=== PATIENT | male | born 1945 | race Caucasian/White ===

== ENCOUNTER 2018-07-17 09:28 | Emergency (ER) | payer OTHER, BC ==
[2018-07-17] MEDS ORDERED: SODIUM CHLORIDE 500 ML IV STA (09:31)
[2018-07-17 09:54] VITALS: TEMP 97.9; BMI 25.1
--- NOTE | 2018-07-17 10:06 | PDOC ---
History of Present Illness - General Chief Complaint: Syncope/Near Syncope Stated Complaint: DIZZY DIAPHOERTIC PALE NEAR SYNCOPY Time Seen by Provider: 07/17/18 09:28 History Source: Patient, Spouse Exam Limitations: No Limitations - History of Present Illness Initial Comments: 07/17/18 10:01 72 year old male with PMH HTN, HLD, CABG, renal artery stents, CHF presented to ED for syncopal episode. Pt was at his 's doctor appointment, when walking out to leave he began to feel lightheaded, and had a syncopal episode, taking himself to the ground. Rapid response was called, I arrived to see the patient sitting upright in a corner, clammy and pale. Pt was transferred to a wheelchair and brought to the ED. Within minutes pt was awake and alert, back to baseline, reported no symptoms. Pt denied chest pain, shortness of breath, palpitations prior to syncopal episode or after. Pt admitted to 3 days of white productive cough. Pt admitted to not eating or drinking a lot over the last few days. Allergies: [facility] Collision Repairer: Dr. Craig Coronel - [phone] Past History - Past Medical History Allergies/Adverse Reactions: Allergies Allergy/AdvReac Type Severity Reaction Status Date / Time No Known Allergies Allergy Unverified 07/17/18 09:31 Home Medications: Ambulatory Orders Amlodipine Besylate 5 mg PO DAILY 07/17/18 Clonidine Patch [Catapres Tts Patch -] 0.3 mg TD WEEKLY 07/17/18 Colesevelam HCl 625 mg PO DAILY 07/17/18 Fenofibrate 160 mg PO DAILY 07/17/18 Furosemide [Lasix] 20 mg PO DAILY 07/17/18 Isosorbide Mononitrate [Isosorbide Mononitrate ER] 60 mg PO BID 07/17/18 Methylprednisolone [Medrol Dose Raffy] 4 mg PO ASDIR #21 tablet 07/17/18 Metoprolol Tartrate [Lopressor] 50 mg PO BID 07/17/18 Pravastatin Sodium [Pravachol (Nf)] 40 mg PO HS 07/17/18 Zolpidem Tartrate [Ambien] 5 mg PO PRN 07/17/18 hydrALAZINE HCL [Apresoline -] 25 mg PO TID 07/17/18 Cardiac Disorders: Yes COPD: No Other medical history: KIDNEY STONES - Surgical History Cardiac Surgery: Yes (4 VESSEL BYPASS) - Suicide/Smoking/Psychosocial Hx Smoking History: Never smoked Information on smoking cessation initiated: No Hx Alcohol Use: No Drug/Substance Use Hx: No Review of Systems - Review of Systems Able to Perform ROS?: Yes Comments:: 07/17/18 10:04 General: admitted to generalized weakness. denied fever, chills. HEENT: denied sore throat, rhinorrhea, ear pain. Heart: admitted to syncope. denied chest pain, palpitations, diaphoresis. Respiratory: admitted to cough, sputum production. denied shortness of breath, hemoptysis. Abdomen: denied abdominal pain, nausea, vomiting, diarrhea, constipation, blood in stool. : denied dysuria, increased urinary frequency, hematuria, urinary incontinence , flank pain. Back: denied back pain. Musculoskeletal: denied joint pain, muscle pain, joint swelling. Neurological: denied headache, dizziness, numbness, tingling, weakness. Skin: denied rash, laceration, abrasion. *Physical Exam - Vital Signs Last Vital Signs Temp Pulse Resp BP Pulse Ox 97.9 F 50 L 18 147/59 L 96 07/17/18 09:30 07/17/18 09:30 07/17/18 09:30 07/17/18 09:30 07/17/18 09:30 - Physical Exam Comments: 07/17/18 10:04 Constitutional: Well-nourished, Well-developed, appearing stated age. HEENT: head is normocephalic, atraumatic. no scalp hematomas. no freeman sign. no facial tenderness bilaterally. no raccoon eyes. EOMI. PERRLA. Neck: supple. Full ROM. Heart: regular rhythm. no murmurs, rubs or gallops. Lungs: dullness and crackles to right base. left lung clear to auscultation. Abdomen: soft, nontender. normal bowel sounds. no rebound, guarding, masses. Extremities: peripheral pulses intact. no lower extremity edema. Neurological: CN 2-12 grossly intact. moves all four extremities. Psych: awake, alert, oriented x3. follows commands. answers questions appropriately. ED Treatment Course - LABORATORY CBC & Chemistry Diagram: 07/17/18 10:08 07/17/18 10:08 Medical Decision Making - Medical Decision Making 07/17/18 10:05 72 year old male with above PMH presented to ED for syncopal episode, complained of productive cough x3 days. Initial Vital Signs Temp Pulse Resp BP Pulse Ox 97.9 F 50 L 18 147/59 L 96 07/17/18 09:30 07/17/18 09:30 07/17/18 09:30 07/17/18 09:30 07/17/18 09:30 Afebrile. Bradycardia. No tachypnea. Mild systolic hypertension and diastolic hypotension. No hypoxia on room air. EKG performed at 0929: rate 45, regular rhythm, normal axis, 1st degree AV block , incomplete RBBB, flipped T in III otherwise no ST changes. Labs ordered: CBC, CMP, mag, phos, troponin Imaging ordered: CXR Medications ordered: normal saline bolus 500 cc 07/17/18 11:13 CBC WBC 5.2 K/mm3 (4.0-10.8) 07/17/18 10:08 RBC 3.95 M/mm3 (4.00-5.60) L 07/17/18 10:08 Hgb 13.2 GM/dl (11.7-16.9) 07/17/18 10:08 Hct 38.8 % (35.4-49) 07/17/18 10:08 MCV 98.2 fl (80-96) H 07/17/18 10:08 MCH 33.3 pg (25.7-33.7) 07/17/18 10:08 MCHC 33.9 g/dl (32.0-35.9) 07/17/18 10:08 RDW 13.3 % (11.9-15.9) 07/17/18 10:08 Plt Count 268 K/MM3 (134-434) 07/17/18 10:08 MPV 7.3 fl (7.5-11.1) L 07/17/18 10:08 Absolute Neuts (auto) 3.0 K/mm3 07/17/18 10:08 Neutrophils % 59.8 % (42.8-82.8) 07/17/18 10:08 Lymphocytes % 25.1 % (8-40) 07/17/18 10:08 Monocytes % 10.9 % (3.8-10.2) H 07/17/18 10:08 Eosinophils % 3.0 % (0-4.5) 07/17/18 10:08 Basophils % 1.2 % (0-2.0) 07/17/18 10:08 No anemia. Mild high MCV. No thrombocytopenia. CMP Sodium 136 mmol/L (136-145) 07/17/18 10:08 Potassium 3.6 mmol/L (3.5-5.1) 07/17/18 10:08 Chloride 105 mmol/L (98-107) 07/17/18 10:08 Carbon Dioxide 19 mmol/L (21-32) L 07/17/18 10:08 Anion Gap 12 MMOL/L (8-16) 07/17/18 10:08 BUN 35 mg/dl (7-18) H 07/17/18 10:08 Creatinine 2.2 mg/dl (0.55-1.3) H 07/17/18 10:08 Creat Clearance w eGFR 29.57 (>60) 07/17/18 10:08 Random Glucose 127 mg/dl (74-106) H 07/17/18 10:08 Calcium 8.8 mg/dl (8.5-10) 07/17/18 10:08 Phosphorus 2.6 mg/dl (2.5-4.9) 07/17/18 10:08 Magnesium 1.8 mg/dL (1.8-2.4) 07/17/18 10:08 Total Bilirubin 0.4 mg/dl (0.2-1) 07/17/18 10:08 AST 22 U/L (15-37) 07/17/18 10:08 ALT 13 U/L (13-61) 07/17/18 10:08 Alkaline Phosphatase 40 U/L (45-117) L 07/17/18 10:08 Troponin I < 0.03 ng/ml (0.00-0.05) 07/17/18 10:08 Total Protein 6.4 g/dl (6.4-8.2) 07/17/18 10:08 Albumin 3.9 g/dl (3.4-5.0) 07/17/18 10:08 No electrolyte abnormalities. JEANMARIE. - No prior to compare No transaminitis Troponin within normal limits. -Will repeat Pt reassessed, reported no symptoms, denied chest pain, shortness of breath, lightheadedness, palpitations. CXR report: no acute chest pathology. Vital Signs Temperature 97.9 F 07/17/18 09:30 Pulse Rate 49 L 07/17/18 11:05 Respiratory Rate 16 07/17/18 11:05 Blood Pressure 119/57 L 07/17/18 11:05 O2 Sat by Pulse Oximetry (%) 98 07/17/18 11:05 Bradycardia persisting. No tachypnea. Hypertension improved. No hypoxia on room air. CT head report: no evidence of acute intracranial hemorrhage, edema, midline shift, mass effect, or skull fracture. no CT evidence of acute territorial ischemic changes. supratentorial chronic white matter microangiopathic ischemic changes, gliosis. 07/17/18 11:42 Dr. Craig Snyder's office paged. 07/17/18 11:46 I spoke with the shade cloth finisher covering for Dr. 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 Current lab results at pt's baseline. 07/17/18 13:02 Pt reported he will miss his Hydralazine 25 mg noon dose. BP currently: 139/75. Medications ordered: Hydralazine 25 mg PO 07/17/18 13:23 Pt ate turkey sandwich and stated since then has not felt lightheaded. 07/17/18 13:48 Second troponin normal. Pt reported no recurrence of lightheadedness, no chest pain, no shortness of breath. Pt ambulated unassisted to the bathroom without any difficulty. Pt discharged and informed to follow up with cardiology. Discharge medications: medrol dose pack. Vital Signs Pulse Rate 48 L 07/17/18 13:29 Respiratory Rate 16 07/17/18 13:29 Blood Pressure 139/75 07/17/18 13:29 O2 Sat by Pulse Oximetry (%) 98 07/17/18 11:05 *DC/Admit/Observation/Transfer Diagnosis at time of Disposition: Syncope, Viral respiratory illness - Discharge Dispostion Disposition: HOME Condition at time of disposition: Improved Decision to Admit order: No - Prescriptions Prescriptions: Methylprednisolone [Medrol Dose Raffy] 4 mg PO ASDIR #21 tablet - Referrals Referrals: Craig Snyder [Primary Care Provider] - Reji Ferreira MD [Staff Physician] - - Patient Instructions Additional Instructions: You were seen today for a syncopal episode (passing out) Your lab work was normal. Your creatinine was elevated (indicating decreased kidney function), but Dr. Synder's office stated that this level has been seen in the past for you. Your chest X-ray was normal, there was no pneumonia. Your CT head was normal. Your EKG was similar to prior EKGs performed at Dr. Snyder's office. Stay hydrated by drinking lots of water. Make sure to eat three times a day. I have sent a prescription to your pharmacy for a medrol dose pack (steroid) to treat your respiratory infection. Follow up with your shade cloth finisher within 3 days. Bring all paperwork given to you today to your appointment. Dr. Snyder's office is aware you were here. Follow up with your primary care doctor within 5 days. Bring all paperwork given to you today to your appointment. -I have given you a referral for Dr. Ferreira. Return to the Emergency Department for lightheadedness like you may pass out, chest pain, shortness of breath, palpitations, passing out, dizziness, blood in urine or any other new, worsening or concerning symptoms. - Post Discharge Activity
--- NOTE | 2018-07-17 10:11 | PDOC ---
Attending Attestation - Resident Resident Name: Shantal Vilchis - ED Attending Attestation I have performed the following: I have examined & evaluated the patient, The case was reviewed & discussed with the resident, I agree w/resident's findings & plan - HPI HPI: 07/17/18 10:06 72-year-old male with history of hypertension with bilateral renal artery stents placed over the last 6 months, aggressive blood pressure regimen with good control and without any recent changes presents to the ED after rapid response was called in the [facility], where his had an appointment. Patient was well until about 3 days ago, when he developed a " chest cold" described as cough with whitish sputum, otherwise no chest pain or dyspnea or fevers or chills. Grandson had URI, so they attributed the symptoms to that. Admittedly, has low by mouth intake on a daily basis, even further decreased over the last few days. Yesterday, shortly after awakening and taking his medications, patient had syncopal episode where he felt lightheaded and then missed a chair and fell to the ground, no head injury, reports loss of consciousness for less than 1 minute. Today, after standing up from the office visit, he became lightheaded again and sat down on the ground, no injury. Denies any chest pain/dyspnea/edema, denies any history of syncope, states last echo was within the last year. - Physicial Exam PE: 07/17/18 10:09 Normal blood pressure, baseline bradycardia at 48, O2 sat ranges from 92-95% on room air Alert and well-appearing seated in stretcher, speaking full sentences without respiratory distress Trauma exam is unremarkable Oropharynx is clear, occasional bronchial cough Decreased breath sounds at the right base with inspiratory and expiratory wheezing, otherwise clear with good air entry and no accessory muscle use Abdomen benign No edema or calf tenderness Neurological exam is normal - Medical Decision Making 07/17/18 10:10 72-year-old male with history of hypertension, no smoking history or underlying lung disease, presents with 2 episodes of lightheadedness/near syncope over the last 2 days in the setting of 3 days of URI/cough. Possible pneumonia given the lung findings and borderline O2 sat, appears dehydrated. Baseline bradycardia but with normal blood pressure, lower suspicion for ACS or arrhythmia. Check labs EKG, chest x-ray Given the fall yesterday, would check CT head IV fluids Reassess 07/17/18 10:45 no leukocytosis or anemia, cxr clear. comp/trop pending. feels well, receiving iv fluids. o2 99% on room air now. 07/17/18 12:21 baseline renal insufficiency 2.2, confirmed with ultimate hoops trainer. ct head without acute disease. sitting up eating tray of food. plan is to check 2nd trop, trial of ambulating, if feels well can discharge to outpt f/u. Balance Bridge Inspector Dr. Salas agrees and can see in office. If persistently light-headed despite food and iv fluids, will need tele obs. 07/17/18 13:52 sxs markedly improved after eating and iv fluids, now ambulating without light- headedness. vss, trop neg x2, feels well. will d/c on medrol dose pack given cough/wheeze, will f/u with his cardiolgist who is aware and agrees, understands return criteria. at bedside. Heart Score/ECG Review #1 ECG reviewed & interpreted by me at: 09:29 General ECG Interpretation: Sinus Rhythm, Normal Rate (45), Normal Intervals ( 1st degree AV block 294, qtc 437), No acute ischemic changes
[2018-07-17 10:22] LABS: BASO % 1.2 % (0-2.0); HEMATOCRIT 38.8 % (35.4-49); HEMOGLOBIN 13.2 GM/dl (11.7-16.9); LYMPH % 25.1 % (8-40); MCH 33.3 pg (25.7-33.7); MCHC 33.9 g/dl (32.0-35.9); MEAN CELL VOLUME 98.2 fl (80-96); MEAN PLT VOLUME 7.3 fl (7.5-11.1); MONO % 10.9 % (3.8-10.2); NEUT % 59.8 % (42.8-82.8); PLATELET COUNT 268 K/MM3 (134-434); RBC 3.95 M/mm3 (4.00-5.60); RDW 13.3 % (11.9-15.9); WHITE BLOOD COUNT 5.2 K/mm3 (4.0-10.8)
[2018-07-17 10:47] LABS: ALBUMIN 3.9 g/dl (3.4-5.0); ALK PHOS 40 U/L (45-117); ANION GAP 12 MMOL/L (8-16); BILIRUBIN,TOTAL 0.4 mg/dl (0.2-1); BLOOD UREA NITROGEN 35 mg/dl (7-18); CALCIUM 8.8 mg/dl (8.5-10); CHLORIDE 105 mmol/L (98-107); CO2 19 mmol/L (21-32); CREATININE 2.2 mg/dl (0.55-1.3); GLUCOSE,RANDOM 127 mg/dl (74-106); MAGNESIUM 1.8 mg/dL (1.8-2.4); PHOSPHOROUS 2.6 mg/dl (2.5-4.9); POTASSIUM 3.6 mmol/L (3.5-5.1); SGOT/AST 22 U/L (15-37); SGPT/ALT 13 U/L (13-61); SODIUM 136 mmol/L (136-145); TOT PROT 6.4 g/dl (6.4-8.2)
--- NOTE | 2018-07-17 11:40 | EKG ---
Test Reason : Blood Pressure : / mmHG Vent. Rate : 045 BPM Atrial Rate : 045 BPM P-R Int : 294 ms QRS Dur : 110 ms QT Int : 506 ms P-R-T Axes : 000 039 002 degrees QTc Int : 437 ms SINUS BRADYCARDIA WITH 1ST DEGREE A-V BLOCK INCOMPLETE RIGHT BUNDLE BRANCH BLOCK NONSPECIFIC T WAVE ABNORMALITY ABNORMAL ECG NO PREVIOUS ECGS AVAILABLE Confirmed by Chadwick Hein MD ([id number]) on 07/17/2018 11:39:48 AM Referred By: RITA GERONIMO Confirmed By:Chadwick Hein MD
[2018-07-17] MEDS ORDERED: hydrALAZINE HCL 25 MG TABLET (FP) PO ONE (13:01)
[2018-07-17 13:30] VITALS: BP 139/75; PULSE 48
== END 2018-07-17 14:11 | disposition home or self-care (01) ==
LOC: FER 09:28
PROC: 3E0337Z Introduction of Electrolytic and Water Balance Substance into Peripheral Vein, Percutaneous Approach (ICD-10-PCS; principal; 2018-07-17)
DX: R55 Syncope and collapse (principal); J06.9 Acute upper respiratory infection, unspecified; B97.89 Other viral agents as the cause of diseases classified elsewhere; I11.0 Hypertensive heart disease with heart failure; I50.9 Heart failure, unspecified; E78.5 Hyperlipidemia, unspecified; Z95.1 Presence of aortocoronary bypass graft; Z95.820 Peripheral vascular angioplasty status with implants and grafts
CPT/HCPCS: 36415; 70450-TC; 71045-TC-FY; 80053; 83735; 84100; 84484; 85025; 85730; 86850; 86900; 86901; 93005; 96360; 99285-25

== ENCOUNTER 2022-09-07 06:26 | Day surgery (SDC) | payer OTHER, BC ==
[2022-09-05 14:40] VITALS: BMI 23.6
[2022-09-07] MEDS: CYCLOPENTOLATE 2% OPHTH SOLN 2 ML BOTTLE ONE ×3 (06:45→06:55)
[2022-09-07] MEDS: PHENYLEPHRINE 2.5% OPTHALMIC DROP 2ML BOTTLE ONE ×3 (06:45→06:55)
[2022-09-07] MEDS: CIPROFLOXACIN 0.3% EYE DROPS 5 ML BOTTLE ONE ×3 (06:45→06:55)
[2022-09-07] MEDS: TROPICAMIDE 1% OPHTH SOLN 15 ML BOTTLE ONE ×3 (06:45→06:55)
[2022-09-07] MEDS ORDERED: PHENYLEPHRINE/KETOROLAC 4 ML VIAL IO ONE (07:12)
[2022-09-07] MEDS ORDERED: NEO/POLYMYX B SULF/DEXAMETH OPHTHALMIC 5ML BOTTLE ONE (07:12)
[2022-09-07] MEDS ORDERED: BSS (NA/CA/MG/K) BALANCED SALT SOLUTION OPHTH SOLN 15 ML BOTTLE ONE (07:12)
[2022-09-07] MEDS ORDERED: LIDOCAINE 1% P/F 10 MG/ML VIAL ONE (07:12)
[2022-09-07] MEDS ORDERED: ACETYLCHOLINE 1:100 INTRA-OCUL 20 MG/2 ML KIT ONE (07:12)
[2022-09-07] MEDS ORDERED: EPINEPHrine/PF 1 MG/1 ML (1:1,000) AMPULE ONE (07:12)
[2022-09-07] MEDS ORDERED: CARBACHOL 0.01% INTRA-OCULAR 1.5 ML VIAL ONE (07:12)
[2022-09-07] MEDS ORDERED: TETRACAINE 0.5% OPHTH SOLN 2 ML BOTTLE ONE (07:12)
[2022-09-07] MEDS ORDERED: TRYPAN BLUE 0.5 ML DISP.SYRIN ONE (07:12)
[2022-09-07] MEDS ORDERED: MIDAZOLAM HCL 2 MG/2 ML SINGLE DOSE VIAL ONE (07:22)
[2022-09-07 08:28] VITALS: RESP 18; TEMP 96.2
[2022-09-07 08:50] VITALS: BP 122/60; PULSE 52
== END 2022-09-07 09:15 | disposition home or self-care (01) ==
LOC: FASU 06:26
PROVIDERS: ATTEND Ophthalmology
PROC: 08RJ3JZ Replacement of Right Lens with Synthetic Substitute, Percutaneous Approach (ICD-10-PCS; principal; 2022-09-07 08:01)
DX: H26.8 Other specified cataract (principal)
CPT/HCPCS: 66984; V2632; J1097

== ENCOUNTER 2022-09-21 09:02 | Day surgery (SDC) | payer OTHER, BC ==
[2022-09-16 16:28] VITALS: BMI 23.6
[2022-09-21] MEDS ORDERED: BSS (NA/CA/MG/K) BALANCED SALT SOLUTION OPHTH SOLN 15 ML BOTTLE ONE (09:26)
[2022-09-21] MEDS ORDERED: TETRACAINE 0.5% OPHTH SOLN 2 ML BOTTLE ONE (09:26)
[2022-09-21] MEDS ORDERED: LIDOCAINE 1% P/F 10 MG/ML VIAL ONE (09:26)
[2022-09-21] MEDS ORDERED: NEO/POLYMYX B SULF/DEXAMETH OPHTHALMIC 5ML BOTTLE ONE (09:26)
[2022-09-21] MEDS ORDERED: EPINEPHrine/PF 1 MG/1 ML (1:1,000) AMPULE ONE (09:26)
[2022-09-21] MEDS ORDERED: CARBACHOL 0.01% INTRA-OCULAR 1.5 ML VIAL ONE (09:26)
[2022-09-21] MEDS: CIPROFLOXACIN 0.3% EYE DROPS 5 ML BOTTLE ONE ×3 (09:35→09:45)
[2022-09-21] MEDS: CYCLOPENTOLATE 2% OPHTH SOLN 2 ML BOTTLE ONE ×3 (09:35→09:45)
[2022-09-21] MEDS: TROPICAMIDE 1% OPHTH SOLN 15 ML BOTTLE ONE ×3 (09:35→09:45)
[2022-09-21] MEDS: PHENYLEPHRINE 2.5% OPTHALMIC DROP 2ML BOTTLE ONE ×3 (09:35→09:45)
[2022-09-21] MEDS ORDERED: MIDAZOLAM HCL 2 MG/2 ML SINGLE DOSE VIAL ONE (11:05)
[2022-09-21 11:32] VITALS: RESP 18; TEMP 96.6
[2022-09-21 11:46] VITALS: BP 128/70; PULSE 72
== END 2022-09-21 12:20 | disposition home or self-care (01) ==
LOC: FASU 09:02
PROVIDERS: ATTEND Ophthalmology
PROC: 08RK3JZ Replacement of Left Lens with Synthetic Substitute, Percutaneous Approach (ICD-10-PCS; principal; 2022-09-21 11:08)
DX: H26.8 Other specified cataract (principal)
CPT/HCPCS: 66984; V2632